=== PATIENT | male | born 1960 | race Caucasian/White ===

== ENCOUNTER 2019-07-13 18:00 | Emergency (ER) | payer MEDICAID ==
[~2019-07-13] VITALS: Ht 182.9 cm; Wt 120.9 kg
[~2019-07-13 18:00] MED LIST: FURO40TA4 PO; PHEN100C12 PO; PHEN32.417 PO; POTA8TAB8 PO; ROSU5TAB4 PO
[2019-07-13 19:20] LABS: BASOPHILS # (AUTO) 0.1 X10'3 (0-0.2); BASOPHILS % (AUTO) 0.6 % (0-1); EOSINOPHILS % (AUTO) 0.1 % (0-6); HEMATOCRIT 44.7 % (42.0-52.0); HEMOGLOBIN 14.9 g/dl (14.0-17.9); LYMPHOCYTES # (AUTO) 2.9 X10'3 (1.1-4.8); LYMPHOCYTES % (AUTO) 14.6 % (21-51); MEAN CORPUSCULAR HEMOGLOBIN 31.6 PG (27.0-31.0); MEAN CORPUSCULAR HGB CONC 33.3 g/dL (33.0-36.5); MEAN CORPUSCULAR VOLUME 95.2 FL (78-98); MEAN PLATELET VOLUME 8.2 FL (7.4-10.4); MONOCYTES # (AUTO) 2.4 X10'3 (0-0.9); MONOCYTES % (AUTO) 12.3 % (2-12); NEUTROPHILS # (AUTO) 14.2 X10'3 (1.8-7.7); NEUTROPHILS % (AUTO) 72.4 % (42-75); PLATELET COUNT 269 X10'3 (140-440); RED BLOOD COUNT 4.69 X10'6 (4.70-6.10); RED CELL DISTRIBUTION WIDTH 13.8 % (11.5-14.5); WHITE BLOOD COUNT 19.6 X10'3 (4.5-11.0)
[2019-07-13 19:23] LABS: PARTIAL THROMBOPLASTIN TIME 29 SECONDS (22-32)
[2019-07-13 19:35] LABS: ALANINE AMINOTRANSFERASE 36 U/L (12-78); ALBUMIN 3.5 G/DL (3.4-5.0); ALBUMIN/GLOBULIN RATIO 0.7 (1.1-1.5); ALKALINE PHOSPHATASE 88 IU/L (46-116); ANION GAP 9 (8-16); ASPARTATE AMINO TRANSFERASE 19 U/L (10-37); BILIRUBIN,TOTAL 0.4 MG/DL (0.1-1.0); BLOOD UREA NITROGEN 11 MG/DL (7-18); CHLORIDE 101 MMOL/L (99-107); GLUCOSE 134 MG/DL (70-104); POTASSIUM 4.1 MMOL/L (3.5-5.1); SODIUM 139 MMOL/L (135-145); TOTAL CARBON DIOXIDE 29.4 MMOL/L (24-32); TOTAL PROTEIN 8.5 G/DL (6.4-8.2); eGFR 69 ML/MIN
[2019-07-13] MEDS ORDERED: normal saline 1000ML IV soln IVB ONE (20:55)
[2019-07-13] MEDS ORDERED: acetaminophen 325mg tablet PO ONE (21:00)
[2019-07-13] MEDS ORDERED: ketorolac tromethamine 15mg/ml inj. IV ONE (21:00)
[2019-07-13 21:14] LABS: TOTAL CELLS COUNTED 100
[2019-07-13 21:15] LABS: PLATELET ESTIMATE NORMAL
[2019-07-13] MEDS ORDERED: CefTRIAXone/D5W-Rocephin 1gm 50 ML IV ONE (21:20)
[2019-07-13] MEDS ORDERED: vancomycin/NS 1 GM ADD-VANTAGE 250 ML IV ONE (21:20)
[2019-07-13] MEDS ORDERED: LIDOcaine 1% w/EPI 1:200,000 injection 10mL vial IM ONE (22:05)
[2019-07-13 22:48] VITALS: BP 118/68
--- NOTE | 2019-07-13 23:38 | NUR ---
PA MACKEY AT BEDSIDE WITH PT
[2019-07-13] MEDS ORDERED: DOXY100C43 PO (23:59)
[2019-07-13] MEDS ORDERED: CEPH-572 PO (23:59)
== END 2019-07-14 00:55 | disposition home or self-care (01) ==
LOC: ER 18:00
DX: L02.212 Cutaneous abscess of back [any part, except buttock and flank] (principal); J86.9 Pyothorax without fistula; R79.1 Abnormal coagulation profile; Z86.69 Personal history of other diseases of the nervous system and sense organs; Z90.89 Acquired absence of other organs; Z79.899 Other long term (current) drug therapy
CPT/HCPCS: 10060; 36415; 71045; 80053; 83605; 84145; 85025; 85610; 85730; 87040; 96365; 96367; 96375; 99284; J0696; J1885; J3370; J7030

== ENCOUNTER 2024-04-07 17:56 | Emergency (ER) | payer MEDICAID ==
[~2024-04-07] VITALS: Ht 182.9 cm; Wt 133.0 kg
[2024-04-07 18:01] VITALS: BP 133/89; PULSE 71; RESP 18; TEMP 98.3; O2SAT 95
[2024-04-07] MEDS: LIDOcaine 1% W/epiNEPHrine 1:100,000 20ml vial SQ ONE (19:14)
[2024-04-07] MEDS ORDERED: AMOX500C2 PO (19:18)
[2024-04-07] MEDS: TETanus/Pertussis (Acell)/Diphther VAC/PF (Tdap-Adult) 0.5ml syringe IMVAC ONE (19:54)
== END 2024-04-07 20:01 | disposition home or self-care (01) ==
LOC: ER 17:56
DX: S01.512A Laceration without foreign body of oral cavity, initial encounter (principal); X58.XXXA Exposure to other specified factors, initial encounter; Y93.89 Activity, other specified; Y92.89 Other specified places as the place of occurrence of the external cause; Y99.8 Other external cause status
CPT/HCPCS: 90471; 90715; 99283; A6449